=== PATIENT | male | born 2000 | race Caucasian/White ===

== ENCOUNTER 2023-08-22 07:39 | Emergency (ER) | payer OTHER, SELFPAY ==
[2023-08-22] VITALS (13 sets, daily range): BP systolic 128–175; BP diastolic 76–114; PULSE 70–130; RESP 18; TEMP 37.2–38; O2SAT 91–100; BMI 30.4
--- NOTE | 2023-08-22 07:37 | ECG_ITS ---
APPROVED REPORT Exam: Resting ECG HR:129 bpm ECG Measurements Heart Rate 129 AXES WY 128 P 43 QRSd 90 QRS 47 QT 291 T 8 QTc 367 Conclusion SINUS TACHYCARDIA NONSPECIFIC T-WAVE ABNORMALITY Electronically signed by : JEREMÍAS RODRIGUEZ, 08/22/2023 13:43:55
--- NOTE | 2023-08-22 07:40 | HMH.EDGENADL ---
Discharge Plan Disposition Patient Disposition: Home, Self-Care Condition: Good Prescriptions Prescriptions: No Action dextroamphetamine-amphetamine [Adderall XR] 25 mg capsule,extended release 24hr 25 mg PO DAILY Qty: 30 0RF doxepin 50 mg capsule See Rx Instructions PO QHS PRN (Reason: insomnia) Qty: 60 1RF Dose Instruction: take 1 capsule at bedtime; may repeat dose in 1 hour if still awake PO QHS PRN; Rx Instructions: take 1 capsule at bedtime; may repeat dose in 1 hour if still awake PO QHS PRN; sertraline [Zoloft] 50 mg tablet 50 mg PO DAILY Qty: 30 1RF Referrals Follow up/Referrals: Provider,Referral, [Primary Care Provider] - See instructions Activity Restrictions/Add. Instructions Additional Instructions/Restrictions: You were evaluated in the emergency department today. Please refrain from drug use. Make sure that you stay orally hydrated. Follow-up with your primary care provider over the next week for reassessment. Return to the emergency department for new or worsening symptoms. Clinical Impressions Clinical Impression: Mushroom poisoning Instructions Patient Instructions: DI for Drug Overdose in Adults Discharge ED Provider: Sun Cano General Adult HPI General Chief complaint: Overdose Stated complaint: AMS Time Seen by Provider: 08/22/23 07:47 History of Present Illness HPI narrative: This patient is a 23-year-old male with history of ADHD according to medical record review presenting to the emergency department for evaluation with concern for mushroom ingestion. Patient is brought in by EMS who was called to the scene by police with concern that the patient was tripping on mushrooms. Patient does not contribute to history, as he is currently not cooperative with questioning. EMS notes that the patient was mildly tachycardic but otherwise stable en route. Unsure what time of an ingestion may be. They arrived with an entire packet of amanita muscaria blend mushroom gummies that contained 8 gummies per pouch, and it is assumed patient took all of them at once. Mom arrived a bit later and advised she came home from work and saw the patient normal at 2-3am. Her boyfriend saw him normal around 5am. At 7am, they woke to him screaming and crying. That's when she found him in this state with the bag of mushrooms in the trash. She states he has no prior history of substance use. Related Data Previous Rx's Medication Instructions Recorded dextroamphetamine-amphetamine ER 25 mg PO DAILY #30 caps 11/17/18 25 mg 24hr capsule,extend release (Adderall XR) doxepin 50 mg capsule See Rx Instructions PO QHS PRN 11/17/18 insomnia #60 caps sertraline 50 mg tablet (Zoloft) 50 mg PO DAILY #30 tabs 11/17/18 Allergies Allergy/AdvReac Type Severity Reaction Status Date / Time No Known Allergies Allergy Verified 07/26/18 16:00 [facility] Disclaimer: The information contained in this section may have been updated after the patient was seen, as this information can be updated by other users. Social History Smoking Status: Unknown if ever smoked alcohol intake: never substance use type: denies use and marijuana (He has tried pot; this is when he was 7 years old. He has not done this since then. ) current occupational status: student Travel in the last 8 weeks: None number of children: 0 ROS Obtained: Yes unobtainable due to mental status Physical Exam General General appearance: alert and anxious Comment: Very anxious appearing, looking around everyone in the room but not responding verbally to any questions and not cooperative with commands. Head Head exam: atraumatic and normocephalic Eye Eye exam: Present normal appearance, PERRL, EOMI and conjunctival injection ENT ENT exam: Present normal exam and normal oropharynx Neck Neck exam: Present normal inspection, full ROM and trachea midline Chest Chest inspection: Present normal inspection and symmetric chest wall rise Respiratory Respiratory exam: Present normal lung sounds bilaterally; Absent respiratory distress or wheezes Cardiovascular Cardiovascular exam: Present normal rhythm and tachycardia Abdominal Exam Abdominal exam: Present soft; Absent distention, tenderness or guarding Extremities Exam Extremities exam: Present normal inspection and full ROM; Absent tenderness or edema Back Exam Back exam: Present normal inspection and full ROM; Absent tenderness Neurological Exam Neurological exam: Present alert and CN II-XII intact; Absent motor sensory deficit Psychiatric Psychiatric exam: Present anxious Skin Skin exam: Present warm and dry Medical Decision Making [place] Inquiry Pt receiving controlled substance: No Vital Signs: 08/22/23 07:39 08/22/23 08:00 08/22/23 08:30 Temperature 100.4 F H Temperature Source Axillary Pulse Rate 130 H 114 H Pulse Rate [Radial] 127 H Respiratory Rate 18 Blood Pressure 162/114 H 152/110 H Blood Pressure [Right Arm] 175/114 H Blood Pressure Mean 130 124 Blood Pressure Mean [Right Arm] 134 Blood Pressure Source Blood Pressure Source [Right Arm] Automatic Cuff Blood Pressure Position Blood Pressure Position [Right Arm] Sitting 02 Sat by Pulse Oximetry 98 91 L 100 Oxygen Delivery Method Room Air Room Air 08/22/23 08:52 08/22/23 11:06 08/22/23 11:30 Temperature Temperature Source Pulse Rate 125 H 91 H 82 Pulse Rate [Radial] Respiratory Rate Blood Pressure 156/92 H 166/94 H 148/79 H Blood Pressure [Right Arm] Blood Pressure Mean 114 102 Blood Pressure Mean [Right Arm] Blood Pressure Source Blood Pressure Source [Right Arm] Blood Pressure Position Blood Pressure Position [Right Arm] 02 Sat by Pulse Oximetry 97 97 98 Oxygen Delivery Method Room Air Room Air Room Air 08/22/23 12:00 08/22/23 12:31 08/22/23 13:45 Temperature Temperature Source Pulse Rate 83 84 Pulse Rate [Radial] Respiratory Rate Blood Pressure 134/82 166/100 H 136/78 Blood Pressure [Right Arm] Blood Pressure Mean 93 122 107 Blood Pressure Mean [Right Arm] Blood Pressure Source Blood Pressure Source [Right Arm] Blood Pressure Position Blood Pressure Position [Right Arm] 02 Sat by Pulse Oximetry 98 97 97 Oxygen Delivery Method 08/22/23 14:00 08/22/23 14:30 08/22/23 15:00 Temperature Temperature Source Pulse Rate 70 75 71 Pulse Rate [Radial] Respiratory Rate Blood Pressure 131/76 128/82 132/94 H Blood Pressure [Right Arm] Blood Pressure Mean 94 92 106 Blood Pressure Mean [Right Arm] Blood Pressure Source Blood Pressure Source [Right Arm] Blood Pressure Position Blood Pressure Position [Right Arm] 02 Sat by Pulse Oximetry 98 99 97 Oxygen Delivery Method Room Air 08/22/23 15:10 Temperature 98.9 F Temperature Source Oral Pulse Rate 80 Pulse Rate [Radial] Respiratory Rate 18 Blood Pressure 132/94 H Blood Pressure [Right Arm] Blood Pressure Mean Blood Pressure Mean [Right Arm] Blood Pressure Source Automatic Cuff Blood Pressure Source [Right Arm] Blood Pressure Position Sitting Blood Pressure Position [Right Arm] 02 Sat by Pulse Oximetry Oxygen Delivery Method Room Air Lab Data Lab Results 08/22/23 07:44: WBC 11.5 H, RBC 5.48, Hgb 16.2, Hct 46.7, MCV 85.1, MCH 29.5, MCHC 34.6, RDW 13.7, Plt Count 266, MPV 7.9, Neut % (Auto) 81.2 H, Lymph % (Auto) 13.6, [place] % (Auto) 4.4, Eos % (Auto) 0.3, Baso % (Auto) 0.5, Neut # (Auto) 9.3 H, Lymph # (Auto) 1.6, [place] # (Auto) 0.5, Eos # (Auto) 0.0, Baso # (Auto) 0.1, Sodium 140, Potassium 3.9, Chloride 102, Carbon Dioxide 26, Anion Gap 15.9 H, BUN 12, Creatinine 1.20, Estimated Creat Clear 125, Estimated GFR 76, Est GFR ( Amer) 92, Glucose 119 H, Calcium 10.0, Total Bilirubin 0.6, AST 37, ALT 36, Alkaline Phosphatase 80, Total Protein 8.6 H, Albumin 5.0, Globulin 3.6 H, Albumin/Globulin Ratio 1.4, Salicylates < 1.0 L, Acetaminophen < 10 L, Plasma/Serum Alcohol < 10 08/22/23 08:49: Urine Color Yellow, Urine Appearance Clear, Urine pH 7.5, Ur Specific [place] 1.010, Urine Protein Negative, Urine Glucose (UA) Negative, Urine Ketones Negative, Urine Blood Negative, Urine Nitrate Negative, Urine Bilirubin Negative, Urine Urobilinogen 0.2, Ur Leukocyte Esterase Negative, Urine RBC None, Urine WBC None, Ur Squamous Epith Cells None, Urine Bacteria None, Urine Opiates Screen Negative, Urine Methadone Screen Negative, Ur Barbituates Screen Negative, Ur Phencyclidine Scrn Negative, Ur Amphetamines Screen Negative, U Benzodiazepines Scrn Negative, Urine Cocaine Screen Negative, U Marijuana (THC) Screen Negative 08/22/23 07:44 08/22/23 07:44 Orders (Tests/Meds): ED MEDICATIONS Generic Name Dose Route Start Last Admin Trade Name Freq PRN Reason Stop Dose Admin Sodium Chloride 10 ml 08/22/23 07:40 Sodium Chloride 0.9% 10ml Vial IV 09/21/23 07:39 NEEDED PRN to Dilute Lorazepam inj Sodium Chloride 10 ml 08/22/23 07:57 Sodium Chloride 0.9% 10ml Vial IV 09/21/23 07:56 NEEDED PRN to Dilute Lorazepam inj Sodium Chloride 10 ml 08/22/23 08:05 Sodium Chloride 0.9% 10ml Vial IV 09/21/23 08:04 NEEDED PRN to Dilute Lorazepam inj Discontinued Medications Generic Name Dose Route Start Last Admin Trade Name Rodrigoq PRN Reason Stop Dose Admin Lactated Ringer's 1,000 mls @ 999 mls/hr 08/22/23 07:38 08/22/23 07:47 Lactated Ringer's 1000 Ml Bag IV 08/22/23 08:38 999 mls/hr .Q1H1M ONE Administration Lactated Ringer's 1,000 mls @ 999 mls/hr 08/22/23 08:41 08/22/23 08:42 Lactated Ringer's 1000 Ml Bag IV 08/22/23 09:41 999 mls/hr .Q1H1M ONE Administration Lorazepam 1 mg 08/22/23 07:40 08/22/23 07:46 Lorazepam 2mg/Ml Vial IV 08/22/23 07:41 1 mg ONCE ONE Administration Lorazepam 1 mg 08/22/23 07:57 08/22/23 08:02 Lorazepam 2mg/Ml Vial IV 08/22/23 07:58 1 mg ONCE ONE Administration Lorazepam 1 mg 08/22/23 08:05 Lorazepam 2mg/Ml Vial IV 08/22/23 08:06 ONCE ONE Ondansetron HCl 4 mg 08/22/23 07:38 08/22/23 07:46 Ondansetron 4mg/2ml Vial IV 08/22/23 07:39 4 mg ONCE ONE Administration ORDERS Category Date Time Status Acetaminophen Stat Lab 08/22/23 07:44 Completed Complete Blood Count Auto Diff Stat Lab 08/22/23 07:44 Completed Comprehensive Metabolic Panel Stat Lab 08/22/23 07:44 Completed Ethyl Alcohol Stat Lab 08/22/23 07:44 Completed Salicylate Stat Lab 08/22/23 07:44 Completed UA [Urinalysis and Microscopic] Stat Lab 08/22/23 08:49 Completed UDS [Drug Screen,Urine] Stat Lab 08/22/23 08:49 Completed ECG Data Tracing #1: I reviewed this ECG and interpreted as documented below: Sinus tachycardia with a ventricular rate of [address] changes concerning for ischemia. Normal axis and intervals. ECG initial impression date: 08/22/23 ECG initial impression time: 07:38 Medical Decision Narrative: To monitorIn summary, this patient is a 23-year-old male presenting to the Emergency Department for evaluation of mushroom ingestion. Differential diagnoses considered include but are not limited to mushroom ingestion, mushroom toxicity, polysubstance ingestion, liver dysfunction, cholinergic toxicity. Ruling out the most morbid conditions drove assessment. I reviewed patient's past medical records and noted history of ADHD but did not see other reported past medical history. On exam, the patient is very anxious appearing and is not responding verbally to questions or being very cooperative. Workup included CBC, CMP, acetaminophen, salicylate, ethanol level, urinalysis, urine drug screen, and EKG. He was given a bolus of IV fluids as well as IV Ativan and Zofran for symptomatic improvement of ingestion. We did reach out to poison control at 0750 to discuss this given the concentration of drug is unclear, and they advised supportive management and monitoring until he returns to baseline. They also advised basic labs including acetaminophen and salicylate levels, which were already sent. On reassessment, patient continues to be agitated, screaming and crying out for his dog. He is very anxious appearing. Given this, he was given a second dose of Ativan 2 mg. Labs resulted and are reassuring with negative acetaminophen, negative salicylate, and normal liver enzymes. At 0805, patient was placed in ED observation status pending return to baseline after metabolization of mushrooms to determine whether or not the patient would be appropriate for discharge versus admission. The patient was provided serial reevaluations and cardiac monitoring while awaiting ultimate disposition. On reassessment at 11:20 AM, the patient is sleeping comfortably but is difficult to arouse after administration of Ativan. Will continue to monitor him until he returns to his neurologic baseline. At 12:30 PM, patient is starting to wake up. Will assess his ability to tolerate oral intake and ambulate throughout the emergency department and return to his baseline prior to discharge. As of approximately 1 PM, the patient is tolerating oral intake well. He is alert and oriented x 3 but is very drowsy. Attempted ambulation trial, but he is very unsteady on his feet. Will give him some more time. At 3 PM, patient was able to ambulate throughout the emergency department that difficulty. He is alert and oriented. Given this, I feel that he has metabolized and is medically clear for discharge. He was given instructions to abstain from drug use and instructions for strict return precautions and close outpatient follow-up. He was discharged in stable condition after all questions were answered. Critical Care Critical Care Time Critical Care Time: No
--- NOTE | 2023-08-22 07:41 | PC.NURSE ---
staff at BS
[2023-08-22] MEDS: ONDANSETRON 4MG/2ML VIAL 4 MG IV (07:46)
[2023-08-22] MEDS: LORazepam 2MG/ML VIAL 1 MG IV ×2 (07:46→08:02)
[2023-08-22] MEDS: LACTATED RINGERS 1000ML 1,000 ML 999 ML IV ×2 (07:47→08:42)
[2023-08-22 07:51] LABS: Basophils # 0.1 K/mm3 (0-0.2); Basophils % 0.5 % (0.1-2.0); Eosinophils % 0.3 % (0.1-12.0); Hematocrit 46.7 % (42.0-52.0); Hemoglobin 16.2 g/dL (14.1-18.0); Lymphocytes # 1.6 K/mm3 (0.7-4.5); Lymphocytes % 13.6 % (10-50); Mean Corpuscular HGB Conc 34.6 g/dL (31.8-35.4); Mean Corpuscular Hemoglobin 29.5 pg (27.0-31.2); Mean Corpuscular Volume 85.1 fl (80-94); Mean Platelet Volume 7.9 fl (7.4-10.4); Monocytes # 0.5 K/mm3 (0.1-1.0); Monocytes % 4.4 % (1.7-9.3); Neutrophils # 9.3 K/mm3 (1.8-7.8); Neutrophils % 81.2 % (37.0-80.0); Platelet Count 266 K/mm3 (142-424); Red Blood Count 5.48 M/mm3 (4.60-6.20); Red Cell Distribution Width 13.7 % (11.5-17.5); White Blood Count 11.5 K/mm3 (4.8-10.8)
[2023-08-22 07:56] LABS: Chloride 102 mmol/L (98-107); Potassium 3.9 mmoL/L (3.5-5.1); Sodium 140 mmol/L (136-145)
--- NOTE | 2023-08-22 07:56 | PC.NURSE ---
POISON CONTROL CONTACTED AT THIS TIME, SUPPORTIVE CARE, BENZOS IF NEEDED. TYLENOL, ASPRIN, ALCOHOL LEVEL CBC, ABG, UA MONITOR UNTIL PT IS AWAKE ALERT AND BACK TO BASELINE PER BLADE
[2023-08-22 07:58] LABS: Blood Urea Nitrogen 12 mg/dl (9-20); Creatinine Clearance Estimated 125 mL/min (50-200); Estimated Glomerular Filt Rate 76 ml/min (>60); GFR (African American) 92 ML/MIN (>60)
[2023-08-22 07:59] LABS: Alanine Aminotransferase 36 U/L (12-78); Albumin/Globulin Ratio 1.4 (1.1-1.8); Alkaline Phosphatase 80 U/L (38-126); Anion Gap 15.9 mEq/L (5-15); Aspartate Amino Transferase 37 U/L (17-59); Bilirubin,Total 0.6 mg/dl (0.2-1.3); Carbon Dioxide 26 mmol/L (22.0-30.0); Globulin 3.6 g/dL (1.3-3.2); Glucose 119 mg/dl (74-100); Total Protein,Serum 8.6 g/dl (6.3-8.2)
[2023-08-22 08:00] LABS: Acetaminophen < 10 ug/ml (10-30); Ethyl Alcohol < 10 mg/dl (0-10); Salicylate < 1.0 mg/dL (2.0-20.0)
--- NOTE | 2023-08-22 08:03 | PC.NURSE ---
DR RODRIGUEZ AT BEDSIDE
--- NOTE | 2023-08-22 08:49 | PC.NURSE ---
pt is up walking around in room, needs to use the bathroom. He reports he is able to urinate, will collect UA. Pt laid back down in bed. No other needs at this time.
[2023-08-22 08:54] LABS: Microscopic, Urine URINE MICROSCOPIC (MICROSCOPIC)
[2023-08-22 08:55] LABS: Appearance,Urine CLEAR (Clear); Bilirubin,Urine Negative (Negative); Blood, Urine Negative (Negative); Color,Urine YELLOW (Yellow); Glucose,Urine (UA) Negative (Negative); Ketones,Urine Negative (Negative); Leukocyte Esterase,Urine Negative (Negative); Nitrate,Urine Negative (Negative); PH,Urine 7.5 (5.0-8.5); Protein,Urine Negative (Negative); Urobilinogen,Urine 0.2 EU/dl (0.2)
[2023-08-22 09:06] LABS: Amphetamine/Metha Screen,Urine Negative ng/ml (<1000)
[2023-08-22 09:07] LABS: Benzodiazepines Screen,Urine Negative ng/ml (<200); Cannabinoid Screen,Urine Negative ng/ml (<50)
[2023-08-22 09:08] LABS: Cocaine Screen,Urine Negative ng/ml (<300)
[2023-08-22 09:09] LABS: Methadone Screen,Urine Negative ng/ml (<300); Opiate Screen,Urine Negative ng/ml (<300)
[2023-08-22 09:10] LABS: Phencyclidine Screen,Urine Negative ng/ml (<25)
[2023-08-22 09:14] LABS: Barbiturates Screen,Urine Negative ng/ml (<200)
--- NOTE | 2023-08-22 10:02 | PC.NURSE ---
patient is lying in bed with family at BS. heated blanket given upon request
--- NOTE | 2023-08-22 11:21 | PC.NURSE ---
Dr. Cano at bedside
--- NOTE | 2023-08-22 11:22 | PC.NURSE ---
DR RODRIGUEZ AT BEDSIDE TO REEVALUATE PT
--- NOTE | 2023-08-22 12:52 | PC.NURSE ---
tolerating po intake well. pt is alert x3, still very drowsy. attempted to walk pt and he is unsteady on feet at this time.
--- NOTE | 2023-08-22 15:06 | PC.NURSE ---
DR RODRIGUEZ AT BEDSIDE TO UPDATE PT
--- NOTE | 2023-08-22 15:06 | PC.NURSE ---
Observed pt get out of bed and ambulate to bathroom. Asked pt to walk around room, he was able to do so steadily.
== END 2023-08-22 15:25 | disposition home or self-care (01) ==
PROVIDERS: Emergency Provider Emergency Medicine
DX: T62.0X1A Toxic effect of ingested mushrooms, accidental (unintentional), initial encounter (principal); F16.929 Hallucinogen use, unspecified with intoxication, unspecified; R00.0 Tachycardia, unspecified; R45.1 Restlessness and agitation
CPT/HCPCS: 80053; 80307; 80320; 80329; 81001; 85025; 93005; 96361; 96374; 96375; 99285; G0480; J2060; J2405; J7120